=== PATIENT | female | born 1960 | race Caucasian/White ===

== ENCOUNTER 2023-09-11 06:28 | Emergency (ER) | payer MEDICARE, SELFPAY ==
[2023-09-11 06:33] VITALS: BP 101/60; PULSE 64; RESP 16; TEMP 36.4; O2SAT 96
--- NOTE | 2023-09-11 06:34 | W.ED.GENADLT ---
HPI - General Adult General: Chief complaint: General Medical Stated complaint: Left side body pain Time Seen by Provider: 09/11/23 06:29 Source: patient and EMS Mode of arrival: EMS Limitations: no limitations History of Present Illness: 63-year-old female states she has chronic nerve pain with trigeminal neuralgia patient states she is traveling here from [place] started having worsening left-sided facial pain this morning. 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 Associated symptoms: Deny chest pain, dyspnea, headache(s), nausea, rash or vomiting Review of Systems Const: Denies: fever(s), chills, body aches or change in appetite ENMT: Reports: sinus pain; Denies: throat pain or dental pain Card: Denies: chest pain Resp: Denies: dyspnea GI: Denies: abdominal pain, nausea, vomiting or diarrhea : Denies: dysuria Musc: Reports: extremity pain; Denies: neck pain or back pain Skin/Breast: Denies: rash Neuro: Denies: headache(s) Physical Exam Const: COMMON NORMALS: no acute distress, patient oriented x3 and healthy appearing HENMT: COMMON NORMALS: normocephalic and atraumatic HEAD & SCALP: normocephalic and atraumatic Eye: COMMON NORMALS: Equal, round and reactive pupils present and EOMs intact bilaterally PUPIL: Yes Equal, round and reactive pupils present Neck/C-Spine: COMMON NORMALS: full ROM and supple Chest: COMMONS NORMALS: normal inspection of the chest and normal palpation of entire chest wall Resp: COMMON NORMALS: normal respiratory effort, No retractions, No use of accessory muscles and clear to auscultation bilaterally AUSCULTATION: clear to auscultation bilaterally Cardio: COMMON NORMALS: regular rate, regular rhythm and No murmurs present (Cardio) RATE: regular rate RHYTHM: regular rhythm GI: COMMON NORMALS: Normal to inspection, nondistended, normoactive bowel sounds present, Soft to palpation, non-tender and no masses PALPATION: Yes Soft to palpation Extremity: COMMON NORMALS: normal to inspection and full ROM Neuro: COMMON NORMALS: patient oriented x3, moves all extremities and no focal motor deficits Psych: COMMON NORMALS: mental status grossly normal, Normal thought process present and cooperative THOUGHT PROCESS: Normal thought process present Skin: COMMON NORMALS: no rashes or lesions noted and no wounds GENERAL SKIN EXAM: no rashes or lesions noted Course Vital Signs: Vital signs: Vital Signs Temperature 97.5 F L 09/11/23 06:33 Pulse Rate 64 09/11/23 06:33 Respiratory Rate 16 09/11/23 06:33 Blood Pressure 101/60 09/11/23 06:33 Pulse Oximetry 96 09/11/23 06:33 [facility] - General Adult Medical Decision Making 63-year-old female presented here with left-sided pain and facial pain she had chronic nerve pain from trigeminal neuralgia she is well-appearing here and stable for discharge she was requesting for prescription for marijuana which I informed her we do not write prescriptions for marijuana through the ER. Medical Records I reviewed the patient's medical records. Lab Data I reviewed the patient's lab results. 09/11/23 06:27 09/11/23 06:27 Laboratory Results WBC 3.57 10^3/uL (3.29-11.43) 09/11/23 06:27 RBC 3.88 10^6/uL (3.85-5.65) 09/11/23 06:27 Hgb 11.40 g/dL (11.27-16.99) 09/11/23 06:27 Hct 34.5 % (36-47) L 09/11/23 06:27 MCV 88.9 fl (85-98) 09/11/23 06:27 MCH 29.4 pg (27-33) 09/11/23 06:27 MCHC 33.0 g/dL (30-55) 09/11/23 06:27 RDW 13.2 % (12.1-15.1) 09/11/23 06:27 Plt Count 245 10^3/cmm (157-399) 09/11/23 06:27 MPV 10.4 fL (7.4-10.4) 09/11/23 06:27 Neut % (Auto) 76.7 % 09/11/23 06:27 Lymph % (Auto) 15.1 % 09/11/23 06:27 Cook % (Auto) 6.2 % 09/11/23 06:27 Eos % (Auto) 0.6 % 09/11/23 06:27 Baso % (Auto) 1.1 % 09/11/23 06:27 Neut # (Auto) 2.74 10^3/uL (1.8-7.7) 09/11/23 06:27 Lymph # (Auto) 0.5 10^3/uL (0.8-4.8) L 09/11/23 06:27 Cook # (Auto) 0.2 10^3/uL (0.2-0.9) 09/11/23 06:27 Eos # (Auto) 0.0 10^3/uL (0.0-0.8) 09/11/23 06:27 Baso # (Auto) 0.0 10^3/uL (0.0-0.1) 09/11/23 06:27 Nucleated RBC % (auto) 0 % 09/11/23 06:27 Nucleated RBCs # 0.0 /100WBC 09/11/23 06:27 Sodium 132 mmol/L (136-145) L 09/11/23 06:27 Potassium 4.5 mmol/L (3.5-5.1) 09/11/23 06:27 Chloride 100 mmol/L (98-107) 09/11/23 06:27 Carbon Dioxide 22 mmol/L (22-29) 09/11/23 06:27 Anion Gap 14.5 (5-19) 09/11/23 06:27 BUN 9 mg/dL (8-23) 09/11/23 06:27 Creatinine 0.6 mg/dL (0.5-0.9) 09/11/23 06:27 GFR Calculation 100.6 mL/min (90-130) 09/11/23 06:27 Glucose 136 mg/dL (65-115) H 09/11/23 06:27 Calculated Osmolality 275 mOsm/kg (285-295) L 09/11/23 06:27 Calcium 8.6 mg/dL (8.5-10.5) 09/11/23 06:27 Total Bilirubin 1.0 mg/dL (0.15-1.2) 09/11/23 06:27 AST 27 U/L (0-32) 09/11/23 06:27 ALT 27 U/L (0-33) 09/11/23 06:27 Alkaline Phosphatase 46 U/L (35-105) 09/11/23 06:27 Total Protein 6.3 g/dL (6.6-8.7) L 09/11/23 06:27 Albumin 4.0 g/dL (3.5-5.2) 09/11/23 06:27 Globulin 2.3 g/dL (1.3-4.6) 09/11/23 06:27 No radiology studies performed this visit Discharge Plan Discharge Patient Disposition: Home Clinical Impression: Trigeminal neuralgia Condition: Stable Discharge Orders: Discharge ED (Routine); Ordered 09/11/23 Ordered By: Kathy Lam Discharge Diet: Advance as tolerated Discharge Activity: Resume usual activity Patient Instructions: Trigeminal Neuralgia (ED) Coding Level of Care Code ED Claims Account Specialist for Jamir Caballero
[2023-09-11] MEDS: sodium chloride 0.9% 1,000 ML 999 ML IV (06:44)
[2023-09-11 06:49] LABS: Basophils % 1.1 %; Eosinophils % 0.6 %; Hematocrit 34.5 % (36-47); Lymphocytes # 0.5 10^3/uL (0.8-4.8); Lymphocytes % 15.1 %; Mean Corpuscular Hemoglobin 29.4 pg (27-33); Mean Corpuscular Volume 88.9 fl (85-98); Mean Platelet Volume 10.4 fL (7.4-10.4); Monocytes # 0.2 10^3/uL (0.2-0.9); Monocytes % 6.2 %; Neutrophils # 2.74 10^3/uL (1.8-7.7); Neutrophils % 76.7 %; Nucleated Red Blood Cells % 0 %; Platelet Count 245 10^3/cmm (157-399); Red Blood Count 3.88 10^6/uL (3.85-5.65); Red Cell Distribution Width 13.2 % (12.1-15.1); White Blood Count 3.57 10^3/uL (3.29-11.43)
[2023-09-11 07:15] LABS: Alanine Aminotransferase 27 U/L (0-33); Alkaline Phosphatase 46 U/L (35-105); Anion Gap 14.5 (5-19); Aspartate Amino Transferase 27 U/L (0-32); Blood Urea Nitrogen 9 mg/dL (8-23); Calcium 8.6 mg/dL (8.5-10.5); Carbon Dioxide 22 mmol/L (22-29); Chloride 100 mmol/L (98-107); Globulin 2.3 g/dL (1.3-4.6); Glomerular Filtration Rate 100.6 mL/min (90-130); Glucose 136 mg/dL (65-115); Osmolality Calculated 275 mOsm/kg (285-295); Potassium 4.5 mmol/L (3.5-5.1); Sodium 132 mmol/L (136-145); Total Protein 6.3 g/dL (6.6-8.7)
[2023-09-11] MEDS: ketorolac 30 mg/mL INJ 15 MG IVP (08:13)
== END 2023-09-11 08:28 | disposition home or self-care (01) ==
PROVIDERS: Emergency Provider Emergency Medicine
DX: G50.0 Trigeminal neuralgia (principal)
CPT/HCPCS: 80053; 85025; 96361; 96374; 99284; J1885; J7030